=== PATIENT | male | born 1960 | race Caucasian/White ===

== ENCOUNTER 2018-05-31 07:11 | Emergency (ER) | payer SELFPAY ==
[~2018-05-31] VITALS: Ht 177.8 cm; Wt 72.0 kg
[2018-05-31 07:18] VITALS: BP 144/84
[2018-05-31] MEDS ORDERED: ONDANSETRON HCL 4MG/2ML VIAL IV STA (07:31)
[2018-05-31] MEDS ORDERED: SODIUM CHLORIDE 0.9% 1,000 ML IV ONE (07:31)
[2018-05-31] MEDS ORDERED: MECLIZINE 25MG TABLET PO ONE (07:45)
[2018-05-31 08:09] LABS: BASOPHILS % 0.5 % (0.0-2.0); EOSINOPHILS % 0.8 % (0.0-5.0); HEMATOCRIT. 45.1 % (42.0-52.0); HEMOGLOBIN. 15.3 g/dL (14.0-18.0); LYMPHOCYTES % 18.2 % (20.0-50.0); MEAN CORPUSCULAR HEMOGLOBIN 30.3 pg (28.0-32.0); MEAN CORPUSCULAR VOLUME 89.6 fL (80.0-94.0); MEAN PLATELET VOLUME 7.7 fl (7.4-10.4); MONOCYTES % 11.8 % (2.0-8.0); NEUTROPHILS % 68.7 % (40.0-76.0); PLATELET 327 x1000/uL (130-400); RED BLOOD CELL COUNT 5.04 mill/uL (4.7-6.1); RED CELL DISTRIBUTION WIDTH 13.4 % (11.6-14.6)
[2018-05-31 08:17] LABS: CHLORIDE 103 mEq/L (98-107)
== END 2018-05-31 09:45 | disposition home or self-care (01) ==
LOC: ER 07:11
DX: H81.399 Other peripheral vertigo, unspecified ear (principal); R00.1 Bradycardia, unspecified; I25.2 Old myocardial infarction; Z95.5 Presence of coronary angioplasty implant and graft
CPT/HCPCS: 36415; 80053; 85025; 93005; 96374; 99285; J2405; J7030; Z7610; J8597